=== PATIENT | male | born 1965 | race Caucasian/White ===

== ENCOUNTER → 2017-11-17 | Outpatient (REF) | payer BC ==
[2017-11-17 12:35] LABS: BASO % 0.7 % (0.0-1.0); EOS # 0.4 10^3/uL (0.0-0.50); HEMATOCRIT 42.6 % (42.0-52.0); HEMOGLOBIN 14.6 g/dl (13.5-17.5); IMMATURE GRANULOCYTE % 0.3 % (0-3.0); LYMPH # 2.1 10^3/uL (1.5-4.5); LYMPH % 33.8 % (24.0-44.0); MEAN CORPUSCULAR HEMOGLOBIN 30.5 pg (27.0-33.0); MEAN CORPUSCULAR HGB CONC 34.3 g/dl (32.0-36.5); MEAN CORPUSCULAR VOLUME 88.9 fl (80.0-96.0); MONO # 0.5 10^3/uL (0.0-0.8); MONO % 8.1 % (0.0-5.0); NEUTROPHILS # 3.1 10^3/uL (1.8-7.7); NEUTROPHILS % 50.1 % (36.0-66.0); PLATELET COUNT, AUTOMATED 248 10^3/uL (150-450); RED BLOOD COUNT 4.79 10^6/uL (4.30-6.10); RED CELL DISTRIBUTION WIDTH 12.3 % (11.5-14.5); WHITE BLOOD COUNT 6.2 10^3/uL (4.0-10.0)
[2017-11-17 13:02] LABS: TOTAL 25(OH) VITAMIN D 17.2 NG/ML (30.0-100.0)
[2017-11-17 13:09] LABS: ALBUMIN 3.3 GM/DL (3.2-5.2); ALBUMIN/GLOBULIN RATIO 0.85 (1.00-1.93); ALKALINE PHOSPHATASE 73 U/L (45-117); ALT/SGPT 28 U/L (12-78); ANION GAP 5 MEQ/L (8-16); AST/SGOT 21 U/L (7-37); BILIRUBIN,TOTAL 0.5 MG/DL (0.2-1.0); BLOOD UREA NITROGEN 13 MG/DL (7-18); CALCIUM LEVEL 8.5 MG/DL (8.5-10.1); CARBON DIOXIDE LEVEL 29 MEQ/L (21-32); CHLORIDE LEVEL 106 MEQ/L (98-107); CHOLESTEROL LEVEL 203 MG/DL (<200); CHOLESTEROL RISK RATIO 4.319 (<5); CREATININE FOR GFR 0.82 MG/DL (0.70-1.30); GLOMERULAR FILTRATION RATE > 60.0 (>56); GLUCOSE, FASTING 95 MG/DL (70-100); HDL CHOLESTEROL 47 MG/DL (>40); LDL CHOLESTEROL 131.6 MG/DL (<100); NON-HDL-C 156 MG/DL; POTASSIUM SERUM 4.8 MEQ/L (3.5-5.1); SODIUM LEVEL 140 MEQ/L (136-145); TOTAL PROTEIN 7.2 GM/DL (6.4-8.2); TRIGLYCERIDES LEVEL 122 MG/DL (<150)
== END ==
LOC: M SFHCADAM 08:07
DX: R03.0 Elevated blood-pressure reading, without diagnosis of hypertension (principal)
CPT/HCPCS: 84443

== ENCOUNTER → 2018-05-19 | Outpatient (REF) | payer BC ==
[2018-05-19 15:38] LABS: TOTAL 25(OH) VITAMIN D 52.5 NG/ML (30.0-100.0)
== END ==
LOC: M SFHCADAM 10:14
DX: E55.9 Vitamin D deficiency, unspecified (principal)

== ENCOUNTER 2019-09-25 10:35 | Emergency (ER) | payer BC ==
[~2019-09-25] VITALS: Ht 167.6 cm; Wt 94.0 kg
[2019-09-25 11:45] LABS: BASO % 0.5 % (0.0-1.0); EOS # 0.1 10^3/uL (0.0-0.5); EOS % 0.8 % (0.0-3.0); HEMATOCRIT 47.9 % (42.0-52.0); HEMOGLOBIN 16.3 g/dl (13.5-17.5); LYMPH # 1.9 10^3/uL (1.5-5.0); LYMPH % 31.4 % (24.0-44.0); MEAN CORPUSCULAR HEMOGLOBIN 30.1 pg (27.0-33.0); MEAN CORPUSCULAR VOLUME 88.4 fl (80.0-96.0); MONO % 15.5 % (0.0-5.0); NEUTROPHILS # 3.1 10^3/uL (1.5-8.5); NEUTROPHILS % 51.3 % (36.0-66.0); PLATELET COUNT, AUTOMATED 194 10^3/uL (150-450); RED BLOOD COUNT 5.42 10^6/uL (4.30-6.10); WHITE BLOOD COUNT 6.1 10^3/uL (4.0-10.0)
--- NOTE | 2019-09-25 12:20 | REPVR ---
PROCEDURE INFORMATION: Exam: MR Head Without Contrast Exam date and time: 09/25/2019 11:22 AM Age: 54 years old Clinical indication: Numbness / parasthesia; Bilateral; Additional info: Right lower lip/jaw numbness; Left pupil constricted TECHNIQUE: Imaging protocol: MR of the head without contrast. COMPARISON: No relevant prior studies available. FINDINGS: Brain: Examination of the brain demonstrates normal morphology and signal intensity.No acute infarction, masses, midline shift or acute hemorrhage is seen. No acute intracranial abnormality is identified.There is no abnormal diffusion weighted signal intensity to suggest an acute ischemic event.The cortical diaz / white matter interfaces are preserved throughout the brain.Intracranial flow voids are well maintained.Examination of the posterior fossa demonstrates no significant abnormality.On gradient echo imaging, no susceptibility changes are seen to represent parenchymal calcification or degraded blood products. Ventricles: The ventricular system is not dilated and is appropriate for the patient's age. Bones/joints: Unremarkable. Soft tissues: Unremarkable. Sinuses: Mild mucosal thickening is seen in the paranasal sinuses. Mastoid air cells: Normal as visualized. No mastoid effusion. Orbits: Unremarkable. IMPRESSION: No acute infarction, masses or hemorrhage is seen. No acute intracranial abnormality is identified. Electronically signed by: Song Gama On 09/25/2019 12:20:25 PM
--- NOTE | 2019-09-25 12:24 | REPVR ---
PROCEDURE INFORMATION: Exam: MR Angiogram Head Without Contrast, Arteries Exam date and time: 09/25/2019 11:22 AM Age: 54 years old Clinical indication: Numbness; Additional info: Right lower lip/jaw numbness; Left pupil constricted TECHNIQUE: Imaging protocol: MR angiogram head without contrast. Exam focused on the arteries. Other technique: 3-D reconstructed images were submitted for interpretation. COMPARISON: No relevant prior studies available. FINDINGS: Right internal carotid artery: Unremarkable. Intracranial segment is patent with no significant stenosis. No aneurysm. Right anterior cerebral artery: Unremarkable. No occlusion or significant stenosis. No aneurysm. Right middle cerebral artery: Unremarkable. No occlusion or significant stenosis. No aneurysm. Right posterior cerebral artery: Unremarkable. No occlusion or significant stenosis. No aneurysm. Right vertebral artery: Unremarkable. No occlusion or significant stenosis. No aneurysm. Left internal carotid artery: Unremarkable. Intracranial segment is patent with no significant stenosis. No aneurysm. Left anterior cerebral artery: Unremarkable. No occlusion or significant stenosis. No aneurysm. Left middle cerebral artery: Unremarkable. No occlusion or significant stenosis. No aneurysm. Left posterior cerebral artery: origin. No occlusion or significant stenosis. No aneurysm. Left vertebral artery: Unremarkable. No occlusion or significant stenosis. No aneurysm. Basilar artery: Unremarkable. No occlusion or significant stenosis. No aneurysm. IMPRESSION: No stenosis.No occlusion. No aneurysm. Electronically signed by: Song Gama On 09/25/2019 12:23:57 PM
[2019-09-25 12:38] LABS: ALBUMIN 3.4 GM/DL (3.2-5.2); ALT/SGPT 29 U/L (12-78); BILIRUBIN,TOTAL 0.6 MG/DL (0.2-1.0); BLOOD UREA NITROGEN 13 MG/DL (7-18); CALCIUM LEVEL 8.6 MG/DL (8.5-10.1); CARBON DIOXIDE LEVEL 20 MEQ/L (21-32); CHLORIDE LEVEL 105 MEQ/L (98-107); CHOLESTEROL LEVEL 205 MG/DL (<200); CREATININE FOR GFR 0.93 MG/DL (0.70-1.30); GLOMERULAR FILTRATION RATE > 60.0 (>56); HDL CHOLESTEROL 41 MG/DL (>40); LDL CHOLESTEROL 133 MG/DL (<100); NON-HDL-C 164 MG/DL; POTASSIUM SERUM 4.2 MEQ/L (3.5-5.1); SODIUM LEVEL 134 MEQ/L (136-145); TOTAL PROTEIN 7.9 GM/DL (6.4-8.2); TRIGLYCERIDES LEVEL 153 MG/DL (<150)
[2019-09-25 12:39] LABS: GLUCOSE, FASTING 101 MG/DL (70-100)
[2019-09-25 13:39] VITALS: BP 135/88
[2019-09-27 00:06] LABS: Lyme Disease IgG/IgM Antibodie <0.91 ISR (0.00-0.90); Lyme Disease IgM Ab Quantitati <0.80 index (0.00-0.79)
== END 2019-09-25 14:02 | disposition home or self-care (01) ==
LOC: M ED 10:35
DX: H57.02 Anisocoria (principal); R20.0 Anesthesia of skin

== ENCOUNTER → 2021-08-26 | Outpatient (REF) | payer BC | LOC: M LAB REF 19:11 | PROVIDERS: ATTEND Physician Assistant | DX: R50.9 Fever, unspecified (principal) ==

== ENCOUNTER → 2021-10-23 | Outpatient (REF) | payer BC ==
[2021-10-23 13:42] LABS: BASO % 0.5 % (0.0-1.0); EOS # 0.3 10^3/uL (0.0-0.5); EOS % 4.8 % (0.0-3.0); HEMATOCRIT 43.8 % (42.0-52.0); HEMOGLOBIN 14.4 g/dl (13.5-17.5); LYMPH # 2.2 10^3/uL (1.5-5.0); LYMPH % 35.9 % (24.0-44.0); MEAN CORPUSCULAR HEMOGLOBIN 30.1 pg (27.0-33.0); MEAN CORPUSCULAR HGB CONC 32.9 g/dl (32.0-36.5); MEAN CORPUSCULAR VOLUME 91.6 fl (80.0-96.0); MONO # 0.5 10^3/uL (0.0-0.8); MONO % 8.5 % (2.0-8.0); NEUTROPHILS # 3.1 10^3/uL (1.5-8.5); NEUTROPHILS % 50.1 % (36.0-66.0); PLATELET COUNT, AUTOMATED 231 10^3/uL (150-450); RED BLOOD COUNT 4.78 10^6/uL (4.30-6.10); WHITE BLOOD COUNT 6.2 10^3/uL (4.0-10.0)
[2021-10-23 14:07] LABS: ALBUMIN 3.2 GM/DL (3.2-5.2); ALT/SGPT 33 U/L (12-78); BILIRUBIN,TOTAL 0.6 MG/DL (0.2-1.0); BLOOD UREA NITROGEN 11 MG/DL (7-18); CALCIUM LEVEL 8.5 MG/DL (8.5-10.1); CARBON DIOXIDE LEVEL 28 MEQ/L (21-32); CHLORIDE LEVEL 107 MEQ/L (98-107); CHOLESTEROL LEVEL 195 MG/DL (<200); CHOLESTEROL RISK RATIO 3.611 (<5); CREATININE FOR GFR 0.82 MG/DL (0.70-1.30); GLOMERULAR FILTRATION RATE > 60.0 (>56); GLUCOSE, FASTING 97 MG/DL (70-100); HDL CHOLESTEROL 54 MG/DL (>40); LDL CHOLESTEROL 123 MG/DL (<100); NON-HDL-C 141 MG/DL; POTASSIUM SERUM 4.6 MEQ/L (3.5-5.1); SODIUM LEVEL 139 MEQ/L (136-145); THYROID STIMULATING HORMONE 0.943 uIU/ML (0.358-3.740); TOTAL PROTEIN 6.5 GM/DL (6.4-8.2); TRIGLYCERIDES LEVEL 92 MG/DL (<150)
== END ==
LOC: M SFHCADAM 07:57
PROVIDERS: ATTEND Physician Assistant Medical
DX: Z00.00 Encounter for general adult medical examination without abnormal findings (principal); E55.9 Vitamin D deficiency, unspecified

== ENCOUNTER → 2021-11-13 | Outpatient (CLI) | payer BC | LOC: M WUC 15:38 | PROVIDERS: ATTEND Physician Assistant | DX: S40.011A Contusion of right shoulder, initial encounter (principal); S50.01XA Contusion of right elbow, initial encounter; Y92.9 Unspecified place or not applicable; Y93.9 Activity, unspecified; Y99.9 Unspecified external cause status ==

== ENCOUNTER 2022-05-09 19:04 | Emergency (ER) | payer BC ==
[~2022-05-09] VITALS: Ht 167.6 cm; Wt 97.9 kg
[2022-05-09] MEDS ORDERED: DOXYCYCLINE HYCLATE 100MG TABLET PO ONE (22:15)
[2022-05-09] MEDS ORDERED: DOXY-443 PO (22:16)
[2022-05-09 22:26] VITALS: BP 161/90
== END 2022-05-09 22:27 | disposition home or self-care (01) ==
LOC: M ED 19:04
DX: S30.861A Insect bite (nonvenomous) of abdominal wall, initial encounter (principal); E66.9 Obesity, unspecified

== ENCOUNTER → 2023-06-27 | Outpatient (CLI) | payer BC ==
[~2023-06-27] MED LIST: DOXY-443 PO
[2023-06-27 14:04] LABS: BASO % 0.5 % (0.0-1.0); EOS # 0.2 10^3/uL (0.0-0.5); EOS % 3.8 % (0.0-3.0); HEMATOCRIT 45.3 % (42.0-52.0); HEMOGLOBIN 15.1 g/dl (13.5-17.5); LYMPH # 2.2 10^3/uL (1.5-5.0); LYMPH % 34.9 % (24.0-44.0); MEAN CORPUSCULAR HEMOGLOBIN 30.9 pg (27.0-33.0); MEAN CORPUSCULAR HGB CONC 33.3 g/dl (32.0-36.5); MEAN CORPUSCULAR VOLUME 92.8 fl (80.0-96.0); MONO # 0.6 10^3/uL (0.0-0.8); MONO % 8.8 % (2.0-8.0); NEUTROPHILS # 3.2 10^3/uL (1.5-8.5); NEUTROPHILS % 51.8 % (36.0-66.0); PLATELET COUNT, AUTOMATED 257 10^3/uL (150-450); RED BLOOD COUNT 4.88 10^6/uL (4.30-6.10); WHITE BLOOD COUNT 6.2 10^3/uL (4.0-10.0)
[2023-06-27 14:19] LABS: ERYTHROCYTE SEDIMENTATION RATE 13 mm/hr (0-20)
[2023-06-27 14:50] LABS: C REACTIVE PROTEIN QUANTITATIV < 0.40 MG/DL (<1.0)
[2023-06-27 14:55] LABS: RHEUMATOID FACTOR QUANT < 3.5 IU/ML (<14)
[2023-06-28 15:07] LABS: ANTINUCLEAR ANTIBODIES DIRECT Negative (Negative)
== END ==
LOC: M LABDRWAD 08:58
PROVIDERS: ATTEND Orthopaedic Surgery
DX: M25.531 Pain in right wrist (principal)

== ENCOUNTER 2023-09-26 06:56 | Inpatient (IN) | payer BC ==
[~2023-09-26] VITALS: Ht 165.1 cm; Wt 91.1 kg
[2023-09-26] MEDS ORDERED: VITA100093 PO (07:15)
[2023-09-26] MEDS ORDERED: ISOVUE-370 76% 100ML VIAL As Ordered ONE (07:40)
[2023-09-26 07:45] LABS: BASO % 0.3 % (0.0-1.0); EOS # 0.3 10^3/uL (0.0-0.5); EOS % 5.9 % (0.0-3.0); HEMATOCRIT 40.4 % (42.0-52.0); HEMOGLOBIN 13.9 g/dl (13.5-17.5); LYMPH % 17.3 % (24.0-44.0); MEAN CORPUSCULAR HGB CONC 34.4 g/dl (32.0-36.5); MEAN CORPUSCULAR VOLUME 90.2 fl (80.0-96.0); MONO # 0.5 10^3/uL (0.0-0.8); MONO % 9.4 % (2.0-8.0); NEUTROPHILS # 3.8 10^3/uL (1.5-8.5); NEUTROPHILS % 66.9 % (36.0-66.0); PLATELET COUNT, AUTOMATED 203 10^3/uL (150-450); RED BLOOD COUNT 4.48 10^6/uL (4.30-6.10); WHITE BLOOD COUNT 5.7 10^3/uL (4.0-10.0)
[2023-09-26 08:14] LABS: BLOOD UREA NITROGEN 13 MG/DL (9-23); CALCIUM LEVEL 7.7 MG/DL (8.5-10.1); CARBON DIOXIDE LEVEL 24 MMOL/L (20-31); CHLORIDE LEVEL 106 MMOL/L (98-107); CK-MB VALUE MASS 2.6 NG/ML (<3.6); CPK CREATINE PHOSPHOKINASE 396 U/L (46-171); CREATININE FOR GFR 0.79 MG/DL (0.70-1.30); GLOMERULAR FILTRATION RATE > 60.0 (>56); GLUCOSE, FASTING 118 MG/DL (60-100); MB/CK RELATIVE INDEX 0.65 (< OR =4); POTASSIUM SERUM 4.2 MMOL/L (3.5-5.1); SODIUM LEVEL 136 MMOL/L (136-145)
[2023-09-26 08:42] LABS: INR 1.24; PARTIAL THROMBOPLASTIN TIME 36.2 SECONDS (24.8-34.2); PROTHROMBIN TIME 15.2 SECONDS (12.5-14.5)
[2023-09-26 08:50] LABS: RSV AMPLIFICATION NEGATIVE (NEGATIVE)
[2023-09-26] MEDS: VITAMIN D 1,000 INTERNATIONAL UNITS TABLET PO SCH (09:00)
[2023-09-26] MEDS: ASPIRIN ENTERIC 325MG TAB PO SCH (11:12)
[2023-09-26] MEDS: ATORVASTATIN 20 MG TAB PO ONE (11:12)
[2023-09-26] MEDS ORDERED: HOME MED LIST COMPLETE! XX SCH (11:15)
[2023-09-26 11:20] LABS: IONIZED CALCIUM 4.3 MG/DL (4.5-5.3)
[2023-09-26] MEDS ORDERED: ACETAMINOPHEN TAB 650MG DOSE (2X325MG) PO PRN (11:20)
[2023-09-26 11:48] LABS: MAGNESIUM LEVEL 2.1 MG/DL (1.8-2.4)
[2023-09-26 11:49] LABS: ALBUMIN 2.7 G/DL (3.2-5.2)
[2023-09-26 11:52] LABS: TOTAL 25(OH) VITAMIN D 22.3 NG/ML (20.0-100.0)
[2023-09-26 12:01] LABS: PROCALCITONIN 0.21 ng/ml
[2023-09-26 13:27] LABS: HEMOGLOBIN A1c 5.9 % (4.0-6.0)
[2023-09-26 14:30] VITALS: BP 144/79; TEMP 98.2; O2SAT 97
[2023-09-26] MEDS: NS 1,000 ML IV ONE (14:46)
[2023-09-26] MEDS: ENOXAPARIN 40MG/0.4ML SYRINGE (J1650 PER 10MG) SC SCH (14:50)
[2023-09-26] MEDS: CALCIUM GLUCONATE 1,000 MG in D5W MINI-BAG PLUS 100 ML IV SCH (16:07)
[2023-09-26 18:10] VITALS: BP 136/79
[2023-09-26 20:00] VITALS: BP 109/63; TEMP 98.2; O2SAT 97
[2023-09-27] VITALS (8 sets, daily range): BP systolic 110–125; BP diastolic 61–76; TEMP 97.3–98.6; O2SAT 95–98
[2023-09-27] MEDS: SODIUM CHLORIDE 0.9% 3ML NEB SOLUTION FOR INHALATION INH ONE (04:53)
[2023-09-27] MEDS: ACETAMINOPHEN *IV* 1,000 MG in IV 1 EA IV ONE (06:03)
[2023-09-27 06:30] LABS: HEMATOCRIT 36.4 % (42.0-52.0); HEMOGLOBIN 12.3 g/dl (13.5-17.5); MEAN CORPUSCULAR HEMOGLOBIN 30.8 pg (27.0-33.0); MEAN CORPUSCULAR HGB CONC 33.8 g/dl (32.0-36.5); MEAN CORPUSCULAR VOLUME 91.2 fl (80.0-96.0); PLATELET COUNT, AUTOMATED 210 10^3/uL (150-450); RED BLOOD COUNT 3.99 10^6/uL (4.30-6.10); WHITE BLOOD COUNT 5.5 10^3/uL (4.0-10.0)
[2023-09-27 07:10] LABS: ALBUMIN 2.5 G/DL (3.2-5.2); ALKALINE PHOSPHATASE 51 U/L (46-116); ALT/SGPT 32 U/L (7.0-40); AST/SGOT 21 U/L (<34); BILIRUBIN,TOTAL 0.5 MG/DL (0.3-1.2); BLOOD UREA NITROGEN 11 MG/DL (9-23); CALCIUM LEVEL 7.3 MG/DL (8.5-10.1); CARBON DIOXIDE LEVEL 23 MMOL/L (20-31); CHLORIDE LEVEL 109 MMOL/L (98-107); CHOLESTEROL LEVEL 131 MG/DL (<200); CHOLESTEROL RISK RATIO 6.61 (<5); CREATININE FOR GFR 0.77 MG/DL (0.70-1.30); GLOMERULAR FILTRATION RATE > 60.0 (>56); GLUCOSE, FASTING 107 MG/DL (60-100); HDL CHOLESTEROL 19.8 MG/DL (>40); LDL CHOLESTEROL 82.6 MG/DL (<100); NON-HDL-C 111.2 MG/DL; POTASSIUM SERUM 4.4 MMOL/L (3.5-5.1); SODIUM LEVEL 138 MMOL/L (136-145); TOTAL PROTEIN 5.7 G/DL (5.7-8.2); TRIGLYCERIDES LEVEL 143 MG/DL (<150)
[2023-09-27] MEDS: CALCIUM CARBONATE 500 MG CHEW U/D PO SCH (09:26)
[2023-09-27] MEDS: ASPIRIN 81MG ENTERIC TABLET PO SCH (09:27)
[2023-09-27] MEDS: ATORVASTATIN 20 MG TAB PO SCH (09:27)
[2023-09-27 10:34] LABS: DRVV SCREEN 47.3 SECONDS; PTT LUPUS TYPE ANTICOAG SCREEN 1.13 (0-1.20)
[2023-09-27 15:09] LABS: THYROID STIMULATING HORMONE 1.769 uIU/ML (0.55-4.78)
[2023-09-27] MEDS ORDERED: propofoL 200 MG/20 ML VIAL As Ordered ONE (17:55)
[2023-09-27] MEDS ORDERED: LIDOCAINE 2% 100MG/5ML SDV (FOR ANES.) As Ordered ONE (17:55)
[2023-09-27] MEDS ORDERED: fentaNYL 100 MCG/2 ML INJECTION As Ordered ONE (17:55)
[2023-09-27] MEDS: CETACAINE SPRAY 5GM As Ordered ONE (18:11)
[2023-09-28] VITALS: BP 92/52; TEMP 98.2; O2SAT 97
[2023-09-28] MEDS: NS 500 ML IV ONE (00:47)
[2023-09-28 00:50] VITALS: BP 93/52; TEMP 99.3; O2SAT 96
[2023-09-28 01:39] VITALS: BP 119/68; TEMP 98.6
[2023-09-28 04:00] VITALS: BP 127/76; TEMP 98.8; O2SAT 97
[2023-09-28 06:32] LABS: BASO % 0.6 % (0.0-1.0); EOS # 0.4 10^3/uL (0.0-0.5); EOS % 8.4 % (0.0-3.0); HEMATOCRIT 38.3 % (42.0-52.0); HEMOGLOBIN 12.7 g/dl (13.5-17.5); LYMPH # 1.6 10^3/uL (1.5-5.0); LYMPH % 32.1 % (24.0-44.0); MEAN CORPUSCULAR HGB CONC 33.2 g/dl (32.0-36.5); MEAN CORPUSCULAR VOLUME 93.4 fl (80.0-96.0); MONO # 0.5 10^3/uL (0.0-0.8); MONO % 9.2 % (2.0-8.0); NEUTROPHILS # 2.5 10^3/uL (1.5-8.5); NEUTROPHILS % 49.5 % (36.0-66.0); PLATELET COUNT, AUTOMATED 197 10^3/uL (150-450)
[2023-09-28 06:57] LABS: BLOOD UREA NITROGEN 11 MG/DL (9-23); CALCIUM LEVEL 7.6 MG/DL (8.5-10.1); CARBON DIOXIDE LEVEL 24 MMOL/L (20-31); CHLORIDE LEVEL 109 MMOL/L (98-107); CREATININE FOR GFR 0.73 MG/DL (0.70-1.30); GLOMERULAR FILTRATION RATE > 60.0 (>56); GLUCOSE, FASTING 96 MG/DL (60-100); POTASSIUM SERUM 4.4 MMOL/L (3.5-5.1); SODIUM LEVEL 139 MMOL/L (136-145)
[2023-09-28 08:00] VITALS: BP 127/75; TEMP 99.1; O2SAT 96
[2023-09-28] MEDS: ATORVASTATIN 20 MG TAB PO SCH (10:09)
[2023-09-28] MEDS ORDERED: ELIQ5TAB PO (10:52)
[2023-09-28] MEDS ORDERED: CALC200T15 PO (10:56)
[2023-09-28] MEDS ORDERED: ATOR40TA75 PO (10:56)
[2023-09-28 12:00] VITALS: BP 125/75; TEMP 98.1; O2SAT 97
[2023-09-28] MEDS: APIXABAN 5 MG TAB (ELIQUIS) PO SCH (14:22)
== END 2023-09-28 14:35 | disposition home or self-care (01) | DRG 45 ==
LOC: M ED 06:56 → M ED INP 09:55 → OBSVTOIN 09:56 → M MSPAV 14:30
PROVIDERS: ADMIT Internal Medicine; ATTEND Internal Medicine
PROC: B246ZZZ Ultrasonography of Right and Left Heart (ICD-10-PCS; principal; 2023-09-27 18:00)
DX: I63.9 Cerebral infarction, unspecified (principal); E83.51 Hypocalcemia; E55.9 Vitamin D deficiency, unspecified; R13.10 Dysphagia, unspecified; R29.810 Facial weakness; R20.0 Anesthesia of skin; I23.6 Thrombosis of atrium, auricular appendage, and ventricle as current complications following acute myocardial infarction; R51.9 Headache, unspecified; R73.03 Prediabetes; Z11.52 Encounter for screening for COVID-19; Z90.49 Acquired absence of other specified parts of digestive tract

== ENCOUNTER → 2023-09-28 | Outpatient (CLI) | payer BC ==
[~2023-09-28] MED LIST changes: +ATOR40TA75 PO; +CALC200T15 PO; +ELIQ5TAB PO; +VITA100093 PO
== END ==
LOC: M EKG 14:45
PROVIDERS: ATTEND Student in an Organized Health Care Education/Training Program
DX: I63.9 Cerebral infarction, unspecified (principal)

== ENCOUNTER → 2024-08-23 | Outpatient (REF) | payer BC ==
[~2024-08-23] MED LIST changes: +DOXY-441 PO; -DOXY-443 PO
[2024-08-23 13:45] LABS: BASO % 0.4 % (0.0-1.0); EOS # 0.3 10^3/uL (0.0-0.5); EOS % 4.3 % (0.0-3.0); HEMATOCRIT 46.6 % (42.0-52.0); HEMOGLOBIN 15.3 g/dl (13.5-17.5); LYMPH # 2.4 10^3/uL (1.5-5.0); LYMPH % 34.4 % (24.0-44.0); MEAN CORPUSCULAR HEMOGLOBIN 30.5 pg (27.0-33.0); MEAN CORPUSCULAR HGB CONC 32.8 g/dl (32.0-36.5); MONO # 0.6 10^3/uL (0.0-0.8); MONO % 9.1 % (2.0-8.0); NEUTROPHILS # 3.6 10^3/uL (1.5-8.5); NEUTROPHILS % 51.7 % (36.0-66.0); PLATELET COUNT, AUTOMATED 260 10^3/uL (150-450); RED BLOOD COUNT 5.01 10^6/uL (4.30-6.10); WHITE BLOOD COUNT 6.9 10^3/uL (4.0-10.0)
[2024-08-23 13:51] LABS: ALBUMIN 3.4 G/DL (3.2-5.2); ALKALINE PHOSPHATASE 86 U/L (40-129); ALT/SGPT 23 U/L (7.0-40); AST/SGOT 19 U/L (<34); BILIRUBIN,TOTAL 0.6 MG/DL (0.3-1.2); BLOOD UREA NITROGEN 13 MG/DL (9-23); CALCIUM LEVEL 9.1 MG/DL (8.5-10.1); CARBON DIOXIDE LEVEL 29 MMOL/L (20-31); CHLORIDE LEVEL 107 MMOL/L (98-107); CHOLESTEROL LEVEL 165 MG/DL (<200); CHOLESTEROL RISK RATIO 3.48 (<5); CREATININE FOR GFR 0.85 MG/DL (0.70-1.30); GLOMERULAR FILTRATION RATE > 60.0 (>56); GLUCOSE, FASTING 99 MG/DL (60-100); HDL CHOLESTEROL 47.3 MG/DL (>40); LDL CHOLESTEROL 83.7 MG/DL (<100); NON-HDL-C 117.7 MG/DL; POTASSIUM SERUM 4.9 MMOL/L (3.5-5.1); SODIUM LEVEL 140 MMOL/L (136-145); TOTAL 25(OH) VITAMIN D 29.3 NG/ML (20.0-100.0); TOTAL PROTEIN 7.1 G/DL (5.7-8.2); TRIGLYCERIDES LEVEL 170 MG/DL (<150)
[2024-08-23 13:53] LABS: THYROID STIMULATING HORMONE 1.215 uIU/ML (0.55-4.78)
[2024-08-23 14:07] LABS: HEMOGLOBIN A1c 5.7 % (4.0-6.0)
== END ==
LOC: M SFHCADAM 07:02
PROVIDERS: ATTEND Physician Assistant Medical
DX: E55.9 Vitamin D deficiency, unspecified (principal); I63.9 Cerebral infarction, unspecified; E83.51 Hypocalcemia; R73.03 Prediabetes

== ENCOUNTER 2025-03-25 12:00 | Inpatient (IN) | payer BC, OTHER ==
[~2025-03-25] VITALS: Ht 167.6 cm; Wt 104.6 kg
[2025-03-25 12:38] LABS: BASO # 0.0 10^3/uL (0.0-0.2); BASO % 0.5 % (0.0-1.0); EOS # 0.0 10^3/uL (0.0-0.5); EOS % 0.7 % (0.0-3.0); LYMPH # 1.9 10^3/uL (1.5-5.0); LYMPH % 30.6 % (24.0-44.0); MONO # 0.9 10^3/uL (0.0-0.8); MONO % 14.2 % (2.0-8.0); NEUTROPHILS # 3.3 10^3/uL (1.5-8.5); NEUTROPHILS % 53.8 % (36.0-66.0); PLATELET COUNT, AUTOMATED 206 10^3/uL (150-450)
[2025-03-25 13:03] LABS: ALT/SGPT 27 U/L (7.0-40); AST/SGOT 34 U/L (<34); CALCIUM LEVEL 8.7 MG/DL (8.5-10.1); CARBON DIOXIDE LEVEL 22 MMOL/L (20-31); CHLORIDE LEVEL 104 MMOL/L (98-107); CREATININE FOR GFR 0.99 MG/DL (0.70-1.30); GLOMERULAR FILTRATION RATE 88.9 (>56); MAGNESIUM LEVEL 2.2 MG/DL (1.8-2.4); POTASSIUM SERUM 4.2 MMOL/L (3.5-5.1); SODIUM LEVEL 138 MMOL/L (136-145)
[2025-03-25 13:53] LABS: INR 1.0
[2025-03-25 14:00] LABS: KETONE, URINE AUTO RFX TRACE mg/dL (NEGATIVE); LEUKOCYTE ESTERASE UR AUTO RFX NEGATIVE (NEGATIVE); MUCUS, URINE RFX MODERATE (NEGATIVE); NITRITE, URINE AUTO RFX NEGATIVE (NEGATIVE); RBC, URINE AUTO RFX 1 /HPF (0-3); SQUAM EPITHELIAL CELL UR AURFX 0 /HPF (0-6); WBC, URINE AUTO RFX 1 /HPF (0-3)
[2025-03-25] MEDS ORDERED: ECOT81TA5 PO (16:20)
[2025-03-25] MEDS ORDERED: HOME MED LIST COMPLETE! XX SCH (16:20)
[2025-03-25] MEDS ORDERED: ATOR40TA75 PO (16:20)
[2025-03-25] MEDS: CLOPIDOGREL 75 MG TAB PO ONE (16:39)
[2025-03-25 18:52] LABS: ERYTHROCYTE SEDIMENTATION RATE 37 mm/hr (0-20)
[2025-03-25 19:04] LABS: C REACTIVE PROTEIN QUANTITATIV 2.46 MG/DL (<1.0); RHEUMATOID FACTOR QUANT < 3.5 IU/ML (<14)
[2025-03-26] VITALS (17 sets, daily range): BP systolic 128–153; BP diastolic 70–86; TEMP 97.2–98.8; O2SAT 93–98
[2025-03-26 06:07] LABS: ESTIMATED AVERAGE GLUCOSE 123.0 MG/DL (60-110)
[2025-03-26 06:21] LABS: CALCIUM LEVEL 8.7 MG/DL (8.5-10.1); CARBON DIOXIDE LEVEL 28 MMOL/L (20-31); CHLORIDE LEVEL 104 MMOL/L (98-107); CREATININE FOR GFR 0.92 MG/DL (0.70-1.30); GLOMERULAR FILTRATION RATE > 90.0 (>56); MAGNESIUM LEVEL 2.2 MG/DL (1.8-2.4); POTASSIUM SERUM 4.1 MMOL/L (3.5-5.1); SODIUM LEVEL 141 MMOL/L (136-145)
[2025-03-26 08:01] LABS: CHOLESTEROL LEVEL 134 MG/DL (<200); CHOLESTEROL RISK RATIO 4.07 (<5); LDL CHOLESTEROL 80.1 MG/DL (<100); NON-HDL-C 101.1 MG/DL; TRIGLYCERIDES LEVEL 105 MG/DL (<150)
[2025-03-26] MEDS: ASPIRIN 81 MG ENTERIC TABLET PO SCH (09:00)
[2025-03-26] MEDS: VITAMIN D 1,000 INTERNATIONAL UNITS TABLET PO SCH (09:00)
[2025-03-26] MEDS: CLOPIDOGREL 75 MG TAB PO SCH (09:00)
[2025-03-26] MEDS: ATORVASTATIN 20 MG TAB PO SCH (20:28)
[2025-03-27] VITALS (23 sets, daily range): BP systolic 122–129; BP diastolic 59–82; TEMP 97.2–98.5; O2SAT 91–98
[2025-03-27 05:52] LABS: PLATELET COUNT, AUTOMATED 199 10^3/uL (150-450)
[2025-03-27 06:23] LABS: CALCIUM LEVEL 8.3 MG/DL (8.5-10.1); CARBON DIOXIDE LEVEL 26 MMOL/L (20-31); CHLORIDE LEVEL 104 MMOL/L (98-107); CREATININE FOR GFR 0.86 MG/DL (0.70-1.30); GLOMERULAR FILTRATION RATE > 90.0 (>56); MAGNESIUM LEVEL 2.1 MG/DL (1.8-2.4); POTASSIUM SERUM 4.2 MMOL/L (3.5-5.1); SODIUM LEVEL 140 MMOL/L (136-145)
[2025-03-27] MEDS ORDERED: LIDOCAINE 2% 100 MG/5 ML SDV (FOR ANES.) As Ordered ONE (16:04)
[2025-03-27] MEDS ORDERED: MIDAZOLAM INJ 2 MG/2 ML VIAL As Ordered ONE (16:04)
[2025-03-27] MEDS: LIDOCAINE VISCOUS 2% SOLN 15 ML UDC As Ordered ONE (17:05)
[2025-03-27] MEDS: CETACAINE SPRAY 5 GM As Ordered ONE (17:34)
[2025-03-27] MEDS ORDERED: PHENYLephrine 500MCG 5ML (100MCG/ML) SYRINGE As Ordered ONE (17:46)
[2025-03-27] MEDS ORDERED: ONDANSETRON 4MG 2ML VIAL IV PRN (18:00)
[2025-03-27] MEDS: ENOXAPARIN 40 MG/0.4 ML SYRINGE (J1650 PER 10MG) SC SCH (18:40)
[2025-03-27] MEDS ORDERED: ATOR80TA59 PO (18:53)
[2025-03-27] MEDS ORDERED: CLOP75TA2 PO (18:53)
[2025-03-28 10:20] LABS: DRVV SCREEN 43.1 SECONDS
[2025-03-28 10:23] LABS: PTT LUPUS TYPE ANTICOAG SCREEN 1.12 (0-1.20)
[2025-03-28 11:47] LABS: CARDIOLIPIN IGA ANTIBODY > 65.0 APL-U/mL (<20.0); CARDIOLIPIN IGG ANTIBODY < 2.0 GPL-U/mL (<20.0); CARDIOLIPIN IGM ANTIBODY < 2.0 MPL-U/mL (<20.0)
== END 2025-03-27 19:53 | disposition home or self-care (01) | DRG 45 ==
LOC: M ED 12:00 → M ED INP 17:16 → M PCU 03-26 02:04
PROVIDERS: ADMIT Student in an Organized Health Care Education/Training Program; ATTEND Student in an Organized Health Care Education/Training Program
PROC: B246ZZ4 Ultrasonography of Right and Left Heart, Transesophageal (ICD-10-PCS; principal; 2025-03-27 17:00)
DX: I63.9 Cerebral infarction, unspecified (principal); I69.392 Facial weakness following cerebral infarction; Z90.49 Acquired absence of other specified parts of digestive tract; Z79.82 Long term (current) use of aspirin; Z79.899 Other long term (current) drug therapy